=== PATIENT | female | born 1950 | race Caucasian/White ===

== ENCOUNTER 2016-11-17 11:45 | Inpatient (IN) | payer MEDICAID ==
[2016-11-17] VITALS (8 sets, daily range): BP systolic 89–139; BP diastolic 52–79
[~2016-11-17] VITALS: Ht 152.4 cm; Wt 95.7 kg
[~2016-11-17 11:45] MED LIST: SUCCINYLCHOLINE CHLORIDE 200 MG/10 ML VIAL MC ONE
[2016-11-17] MEDS ORDERED: IPRATROPIUM BROMIDE 0.5 MG/2.5 ML NEBU NEB ONE (12:00)
[2016-11-17] MEDS ORDERED: methylPREDNISolone SOD SUCC 125 MG/2 ML VIAL IV ONE (12:00)
[2016-11-17] MEDS ORDERED: IV NORMAL SALINE 1000 ML BAG IV ONE (12:00)
[2016-11-17] MEDS ORDERED: ALBUTEROL SULFATE 2.5 MG/3 ML NEBU NEB ONE (12:00)
[2016-11-17] MEDS ORDERED: IPRATROPIUM BROMIDE 0.5 MG/2.5 ML NEBU ONE (12:10)
[2016-11-17] MEDS ORDERED: ALBUTEROL SULFATE 2.5 MG/3 ML NEBU ONE (12:10)
--- NOTE | 2016-11-17 12:20 | NUR ---
Pt BIB [facility], reports pt having increasing SOB x 1 week, hx COPD, Wheezes, rales, and ronchi present bilaterally, SPO2 in low 90's; IV 20g right hand. Pt experiencing dyspnea, keeps pulling the O2 mask away from here face, being somewhat combative, appearing very anxious, speaks in 1-3 words at a time. Pt placed on monitor, EKG -- given to .
[2016-11-17 12:23] LABS: HEMATOCRIT 46.3 % (31.2-41.9); HEMOGLOBIN 15.4 g/dL (10.9-14.3); MEAN CORPUSCULAR HEMOGLOBIN 33.3 uug (24.7-32.8); MEAN CORPUSCULAR HGB CONC 33 g/dL (32.3-35.6); MEAN CORPUSCULAR VOLUME 100.3 fL (75.5-95.3); RED BLOOD CELL COUNT(AUTO) 4.62 MIL/uL (3.63-4.92)
[2016-11-17 12:24] LABS: BASOPHILS # (AUTO) 0.1 K/uL (0.0-8.0); BASOPHILS % (AUTO) 0.5 % (0.0-2.0); EOSINOPHILS # (AUTO) 0.1 K/uL (0.0-0.7); EOSINOPHILS % (AUTO) 0.5 % (0.0-7.0); LYMPHOCYTES # (AUTO) 1.7 K/uL (20.0-40.0); LYMPHOCYTES % (AUTO) 14.4 % (20.5-51.5); MONOCYTES # (AUTO) 0.7 K/uL (2.0-10.0); MONOCYTES % (AUTO) 5.9 % (0.0-11.0); NEUTROPHILS # (AUTO) 9.4 K/uL (1.8-8.9); NEUTROPHILS % (AUTO) 78.7 % (38.5-71.5); PLATELET COUNT (AUTO) 278 K/uL (179-408)
[2016-11-17] MEDS ORDERED: methylPREDNISolone SOD SUCC 125 MG/2 ML VIAL ONE (12:25)
[2016-11-17] MEDS ORDERED: NITROGLYCERIN OINT 1 GM PACKET TP ONE ×2 (12:30→12:37)
[2016-11-17] MEDS ORDERED: FUROSEMIDE 20 MG/2 ML VIAL IV ONE (12:30)
--- NOTE | 2016-11-17 12:30 | NUR ---
PT WAS BROUGHT IN TO ER WITH SOB AND RESPIRATORY DISTRESS ON NRB. PT TX WAS GIVEN DUE TO SOB. PT AT THIS TIME DEVELOPED MORE DISTRESS AND WAS INTUBATED BY MR BRINDA DUE TO RESPIRATORY DISTRESS.NO ABG WAS ORDER FOR PT BASE LINE STATUS. PT WAS INTUBATED AND PLACE ON VENT WITH SETTINGS OF AC 14 VT 600 FIO2 100% WITH ET-TUBE 7.5 AT 22CM LIP LINE. PT WAS SUCTION VIA TUBE AND MOUTH. PT HME WAS PLACE CUFF WAS CHECKED WITH CAKE FORMER. PT VENT ALARM ON AND AUDIBLE. PT AMBU BAG AT BED SIDE. PT SEDATED AT THIS TIME TOLERATING VENT WELL. NO POST ABG WAS ORDER PER MD. WILL CONTINUE TO MONITOR PT.
--- NOTE | 2016-11-17 12:35 | NUR ---
MD intubated pt, 7.5 ETT, 22 at teeth, verified placement w/CO2 detector and auscultation bilaterally, none in epigastric area.
--- NOTE | 2016-11-17 12:35 | NUR ---
Succinylcholine 100mg remaining in vial was wasted per protocol, witnessed by Scar Bhat LVN.
[2016-11-17] MEDS ORDERED: MIDAZOLAM HCL 2 MG/2 ML VIAL ONE (12:36)
[2016-11-17] MEDS ORDERED: FUROSEMIDE 40 MG/4 ML VIAL ONE (12:37)
[2016-11-17 12:38] LABS: CREATININE 1.5 mg/dL (0.6-1.3); POTASSIUM 4.1 mmol/L (3.5-5.1)
[2016-11-17] MEDS ORDERED: MIDAZOLAM HCL 2 MG/2 ML VIAL IV ONE (12:45)
[2016-11-17] MEDS ORDERED: SUCCINYLCHOLINE CHLORIDE 200 MG/10 ML VIAL IV ONE (12:45)
[2016-11-17 12:49] LABS: BILIRUBIN,DIRECT 0.2 mg/dL (0.0-0.2); BILIRUBIN,TOTAL 0.8 mg/dL (0.2-1.0); TOTAL PROTEIN, SERUM 7.1 g/dL (6.4-8.2)
[2016-11-17] MEDS ORDERED: POTA10TA10 PO (12:58)
[2016-11-17] MEDS ORDERED: BUME2TAB3 PO (12:58)
[2016-11-17 12:59] LABS: BAND % (MANUAL) 3 % (0-10); EOSINOPHILS % (MANUAL) 1 % (0-8); LYMPHOCYTES % (MANUAL) 14 % (20-40); METAMYELOCYTES % 1 % (0-1); MONOCYTES % (MANUAL) 5 % (2-10); NEUTROPHILS % (MANUAL) 76 % (42-75)
[2016-11-17] MEDS ORDERED: PROPOFOL 100 ML ONE ×2 (12:59→17:49)
[2016-11-17] MEDS ORDERED: PIPERACILLIN SODIUM/TAZOBACTAM 3.375 G in IV DEXTROSE 5% 50 ML IV ONE (13:00)
[2016-11-17] MEDS ORDERED: VANCOMYCIN IV 1,000 MG in IV DEXTROSE 5% 250 ML IV ONE (13:00)
[2016-11-17] MEDS ORDERED: VANCOMYCIN IV 0 ML ONE (13:26)
[2016-11-17] MEDS ORDERED: PIPERACILLIN SODIUM/TAZO 3.375 GM VIAL ONE (13:26)
--- NOTE | 2016-11-17 13:35 | NUR ---
Pt was using hands to try and pull out tubes. Upped propofol to 30mcg/kg/min @100 kg. Per MD, both pt wrists placed in soft restraints.
[2016-11-17] MEDS: PROPOFOL 100 ML IV PRN ×2 (13:36→22:04)
[2016-11-17] MEDS ORDERED: PIPERACILLIN/TAZOBACTAM/D5W 50 ML IV ONE (13:42)
[2016-11-17] MEDS ORDERED: VANCOMYCIN IV 200 ML ONE (13:43)
[2016-11-17 14:31] LABS: *BILIRUBIN,URIN NEGATIVE (NEGATIVE); *BLOOD, URINE 1+ (NEGATIVE); *CLARITY,URINE SLIGHTLY CLOUDY (CLEAR); *COLOR,URINE YELLOW (YELLOW); *KETONES,URINE NEGATIVE (NEGATIVE); *PROTEIN,URINE 2+ (NEGATIVE); *UROBILINOGEN,URINE 0.2 E.U./dl (NORMAL); LEUKOCYTE ESTERASE ,URINE NEGATIVE (NEGATIVE); NITRITE, URINE POSITIVE (NEGATIVE); PH,URINE 5.5 (5.0-8.0); UGLUCOSE NEGATIVE (NEGATIVE)
[2016-11-17 14:40] LABS: BACTERIA,URINE MANY /HPF (NONE SEEN); SQUAMOUS EPITHELIAL CELL,UR FEW /HPF (NONE SEEN)
[2016-11-17 14:41] LABS: MUCUS,URINE MANY /LPF (0-FEW)
--- NOTE | 2016-11-17 14:52 | NUR ---
PT VENT CHECK WAS DONE AT THIS TIME PT WAS SUCTION. PT REMAINS SEDATED TOLERATING VENT WELL. PT REMAINS ON SAME VENT SETTINGS AT THIS TIME NO ABG WAS ORDER AT THIS TIME PER MD.
[2016-11-17] MEDS ORDERED: ACETAMINOPHEN 650 MG/20 ML UDC- FOR SA ONLY NG PRN (18:30)
[2016-11-17] MEDS ORDERED: NOREPINEPHRINE BITARTRATE 16 MG in IV DEXTROSE 5% 500 ML IV PRN (18:30)
[2016-11-17] MEDS ORDERED: BISACODYL 10 MG SUPP.RECT RC PRN (18:30)
--- NOTE | 2016-11-17 18:30 | NUR ---
RECEIVED PT IN NAD; PT SEDATED ON PROPOFOL GTT; INTUBATED ON VENTILATOR SUPPORT; SR ON THE DETACKER. JUNE CATH IS PATENT AND DRAINING CLEAR YELLOW URINE. PT HAS RED/PURPLE DISCOLORATION IN THE RT ANKLE; AND BLANCHABLE REDNESS IN THE SACRUM/BUTTOCK AREA. 2 PATENT IV'S IN THE RT AC AND LT FA 20G. DAUGHTER AT BEDSIDE AND ALL PATIENT BELONGINGS SENT HOME WITH HER. VSS; SKIN INTACT
--- NOTE | 2016-11-17 18:30 | NUR ---
Transported pt to ICU bed 3, gave report to Jeremiah RN, bedside.
--- NOTE | 2016-11-17 19:54 | NUR ---
CLINICAL PHARMACY NOTE:VANCOMYCIN DOSING Request for vancomycin dosing on 66 y/o female 5' 200lbs for pneumonia Temp 98.2 BUN 35 Scr. 1.5 WBC 12 also on Zosyn received 1gm vancomycin in Er Continue vancomycin 1250mg q30h estimate trough 16. Will order trough level prior to 4th dose. Will continue to monitor'
--- NOTE | 2016-11-17 20:00 | NUR ---
informed respiratory therapist hugo called abg to doctor peleg and with orders to titrate fio2 to 50%.abg in am at 0800.
--- NOTE | 2016-11-17 20:00 | NUR ---
ORALLY INTUBATED TOLERATING VENT SETTINGS .CALLED DOCTOR MARRERO AND INFORMED ABOUT PULMONARY CONSULT ,REPORTED ABG AND CHEST X RAY RESULTS,WITH NEW ORDERS RECEIVED. PT ON PROPOFOL FOR SEDATION SAS OF 3.NO SIGNS AND SYMPTOMS OF RESPIRATORY DISTRESS TOLERATING VENT SETTINGS.ORAL CARE DONE AND SUCTION PATIENT VIA MOUTH AND VIA ETT . Addendum: 11/18/16 at 0045 by WALTRE VAUGHN RN Amended: Links added.
[2016-11-17 20:40] LABS: ABG BASE EXCESS 0.6 mmol/L; ABG HCO3 25.4 mmol/L; ABG PCO2 41.7 mmHg (35.0-45.0); ABG PH 7.403 (7.350-7.450); ABG SITE LEFT BRACHIAL; ABG TOTAL HEMOGLOBIN 13.6 G/dL (12.0-16.0); COHb 0.6 % (0.5-1.5); MetHb 0.3 % (0.0-1.5); O2Hb 98.8 % (94.0-97.0); VENT MODE VENT - A/C; VT, ABG 600 mL
[2016-11-17] MEDS ORDERED: FIBERSOURCE HN 1000ML LIQUID GT PRN (21:00)
--- NOTE | 2016-11-17 21:00 | NUR ---
unable to complete admission data ,due to patients condition and no family at bedside .
[2016-11-17] MEDS: FAMOTIDINE. 20 MG/2 ML VIAL IV SCH (21:02)
[2016-11-17] MEDS: FUROSEMIDE 40 MG/4 ML VIAL IV SCH (21:02)
[2016-11-17] MEDS: ENOXAPARIN SODIUM 40 MG/0.4 ML DISP.SYRIN SQ SCH (21:03)
[2016-11-17] MEDS: PIPERACILLIN/TAZOBACTAM/D5W 2.25 G in PREMIXED 1 EACH IV SCH (21:03)
--- NOTE | 2016-11-17 22:00 | NUR ---
turned and reposition patient .elevated upper and lower extremities with pillows .scds used to bilateral lower extremities . Addendum: 11/18/16 at 0104 by WALTER VAUGHN RN Amended: Links added.
--- NOTE | 2016-11-17 22:20 | NUR ---
Pt rec'd on Garcia settings AC 14, VT 600 and FIO2-100%. FIO2 lowered to 80% per ABG results. No resp. distress noted at this time. 7.5 ETT is at approx. 22 cm at the lip. No resp. distress noted at this time. Pt to be monitored throughout the shift and PRN SX. Garcia alarm parameters have been checked and remain audible.
[2016-11-18] VITALS (40 sets, daily range): BP systolic 84–147; BP diastolic 47–86
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
[2016-11-18] MEDS: PIPERACILLIN/TAZOBACTAM/D5W 2.25 G in PREMIXED 1 EACH IV SCH ×4 (02:47→20:27)
[2016-11-18] MEDS: PROPOFOL 100 ML IV PRN (02:47)
[2016-11-18] MEDS ORDERED: Z GUARD REMEDY PASTE 57 GM TUBE TOP PRN (05:30)
[2016-11-18 05:54] LABS: BASOPHILS % (AUTO) 0.1 % (0.0-2.0); HEMATOCRIT 40.8 % (37-47); HEMOGLOBIN 13.4 G/DL (12.0-16.0); LYMPHOCYTES # (AUTO) 0.6 K/UL (0.8-4.8); LYMPHOCYTES % (AUTO) 5.5 % (20.5-51.5); MEAN CORPUSCULAR HEMOGLOBIN 32.5 UUG (27.0-31.0); MEAN CORPUSCULAR HGB CONC 33 g/dL (32.0-37.0); MEAN CORPUSCULAR VOLUME 98.5 FL (81.0-99.0); MONOCYTES # (AUTO) 0.4 K/UL (0.1-1.30); MONOCYTES % (AUTO) 3.3 % (0.0-11.0); NEUTROPHILS # (AUTO) 10.2 K/UL (1.8-8.9); NEUTROPHILS % (AUTO) 91.1 % (38.5-71.5); PLATELET COUNT (AUTO) 242 K/UL (150-450); RED BLOOD CELL COUNT(AUTO) 4.14 MIL/UL (4.2-5.4); WHITE BLOOD COUNT (AUTO) 11.2 K/UL (4.0-11.2)
--- NOTE | 2016-11-18 06:11 | NUR ---
Pt remains on Garcia on settings of AC 14, VT 600 and FIO2 now on 50%. 7.5 ETT remains patent and secure at approx. 22 cm at the lip. No resp. distress noted throughout the shift. Pt was routinely sx'd and appeared to tolerate the ventilator settings well. BVM at bedside. Garcia alarm parameters have been checked and remain audible.
[2016-11-18 06:12] LABS: BILIRUBIN,TOTAL 0.7 mg/dL (0.2-1.0); CREATININE 1.6 mg/dL (0.6-1.3); MAGNESIUM 2.1 mg/dL (1.8-2.4); PHOSPHOROUS 4.5 mg/dL (2.5-4.9); POTASSIUM 4.1 mmol/L (3.5-5.1); TOTAL PROTEIN, SERUM 5.9 g/dL (6.4-8.2)
[2016-11-18 06:15] LABS: THYROID STIMULATING HORMONE 0.359 mIU/mL (0.358-3.740)
[2016-11-18] MEDS ORDERED: FIBERSOURCE HN 1000ML LIQUID GT PRN (07:05)
--- NOTE | 2016-11-18 07:27 | NUR ---
uneventful night remains orally intubated tolerating vent settings .v/s wnl.endorsed to day RN using sbar.please see ccu flow sheet for trends and clinical data .
--- NOTE | 2016-11-18 08:00 | NUR ---
Pt received in bed intubated on propofol drip 30 mcg/kg/min start sedation vacation and pt remains on Restraint, titrate to 20 mcg/kg/min and the 0820 10 mcg/kg/min Pt has a ABG on Ventilator AC 14 VT 600/ Fio2 50% No peep. Pt full awake extubate herself loosing restraints HOB elevated Pt fiollow coomands and sat on NRBM 98% call Dr Vance to notify and spoke with Dr Mata who is coming to see Pt. 0855 Dr vance call back and order ABG in 30 min at 0930 RT notify 0900 Pt remains full aware follow commands wean oxygen therapy to NC $ LTs sat remains 100% Pt comfortable denies any pain no SOB
[2016-11-18 08:27] LABS: ABG BASE EXCESS 3.1 mmol/L; ABG HCO3 28.4 mmol/L; ABG PCO2 46.3 mmHg (35.0-45.0); ABG PH 7.406 (7.350-7.450); ABG PO2 111.1 mmHg (75.0-100.0); ABG SITE RIGHT RADIAL; ABG TOTAL HEMOGLOBIN 13.6 G/dL (12.0-16.0); COHb 0.6 % (0.5-1.5); MetHb 0.1 % (0.0-1.5); O2Hb 97.7 % (94.0-97.0); VENT MODE VENT - A/C; VT, ABG 600 mL
--- NOTE | 2016-11-18 08:40 | NUR ---
PT SELF EXTUBATED. HHN TX GIVEN AND TOLERATED WELL. CURRENTLY ON 4 LPM VIA NASAL CANNULA, DOING FAIRLY WELL. WILL CONTINUE TO MONITOR FOR S/S OF RESPIRATORY DISTRESS.
[2016-11-18] MEDS ORDERED: ALBUTEROL SULFATE 2.5 MG/3 ML NEBU NEB PRN (09:00)
[2016-11-18] MEDS: Z GUARD REMEDY PASTE 57 GM TUBE TOP SCH ×2 (09:16→20:42)
[2016-11-18] MEDS: FAMOTIDINE. 20 MG/2 ML VIAL IV SCH ×2 (09:20→20:41)
[2016-11-18] MEDS: FUROSEMIDE 40 MG/4 ML VIAL IV SCH ×2 (09:21→20:41)
[2016-11-18 09:38] LABS: ABG BASE EXCESS 3.2 mmol/L; ABG HCO3 29.1 mmol/L; ABG PCO2 48.9 mmHg (35.0-45.0); ABG PH 7.392 (7.350-7.450); ABG PO2 69.8 mmHg (75.0-100.0); ABG SITE RIGHT RADIAL; ABG TOTAL HEMOGLOBIN 14.1 G/dL (12.0-16.0); COHb 0.7 % (0.5-1.5); MetHb 0.2 % (0.0-1.5); O2Hb 93.7 % (94.0-97.0); VENT MODE Nasal Cannula
[2016-11-18] MEDS: ASPIRIN 81 MG TAB.CHEW GT SCH (10:05)
[2016-11-18] MEDS: VANCOMYCIN IV 1,250 MG in IV DEXTROSE 5% 500 ML IV SCH (12:11)
[2016-11-18] MEDS ORDERED: IPRATROPIUM BROMIDE 0.5 MG/2.5 ML NEBU NEB SCH (12:30)
[2016-11-18] MEDS ORDERED: ALBUTEROL SULFATE 2.5 MG/3 ML NEBU NEB SCH (12:30)
[2016-11-18] MEDS: ALBUTEROL SULFATE 2.5 MG/3 ML NEBU NEB SCH ×2 (13:56→19:10)
[2016-11-18] MEDS: IPRATROPIUM BROMIDE 0.5 MG/2.5 ML NEBU NEB SCH ×2 (13:57→19:10)
[2016-11-18] MEDS: methylPREDNISolone SOD SUCC 125 MG/2 ML VIAL IV SCH ×2 (14:18→22:08)
--- NOTE | 2016-11-18 16:01 | NUR ---
PHARMACY CLINICAL NOTES(VANCOMYCIN DOSING) S: 66 YO female on Vancomycin and Zosyn for PNA. O: BUN/SCR 33/1.6, WBC 11.2, TEMP 98.5 A/P: PT started on Vancomycin 1250 mg q30 hr. She received first dose today @ 1200; will continue with the same regimen and will order a trough level prior to 4th dose. Will continue to monitor and adjust the dose if necessary
--- NOTE | 2016-11-18 19:30 | NUR ---
Awake, alert, S/P self extubation this AM. Hx: COPD. Nasal cannula in use, titrating O2 to keep sat =>92%. SOB with exertion. Audible wheezes, RT at bedside for neb Tx. Chronic smoker, verbalizes no plans to quit despite smoking cessation education. Bouts of non-productive cough; voice hoarse. Found IV site right arm infiltrated and appropriate interventions done.
[2016-11-18] MEDS: MORPHINE SULFATE 2 MG/1 ML DISP.SYRIN IV PRN (20:29)
[2016-11-18] MEDS: ENOXAPARIN SODIUM 40 MG/0.4 ML DISP.SYRIN SQ SCH (20:42)
--- NOTE | 2016-11-18 22:00 | NUR ---
Asking for burger; PO swallowing trial with few ice chips. Noted some discomfort and difficulty. Tends to cough. Explained will keep NPO tonight and continue tube feeding Fibersource until seen by MD in AM. Aspiration precautions observed at all times. HOB up 30 degrees.
[2016-11-19] VITALS (7 sets, daily range): BP systolic 119–138; BP diastolic 69–86
[2016-11-19] MEDS: ALBUTEROL SULFATE 2.5 MG/3 ML NEBU NEB SCH ×4 (01:01→19:39)
[2016-11-19] MEDS: IPRATROPIUM BROMIDE 0.5 MG/2.5 ML NEBU NEB SCH ×4 (01:01→19:39)
[2016-11-19] MEDS: PIPERACILLIN/TAZOBACTAM/D5W 2.25 G in PREMIXED 1 EACH IV SCH ×2 (01:57→08:36)
[2016-11-19] MEDS: MORPHINE SULFATE 2 MG/1 ML DISP.SYRIN IV PRN (01:58)
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
[2016-11-19] MEDS: methylPREDNISolone SOD SUCC 125 MG/2 ML VIAL IV SCH ×3 (05:48→21:00)
[2016-11-19 07:37] LABS: HEMATOCRIT 41.2 % (37-47); HEMOGLOBIN 13.8 G/DL (12.0-16.0); LYMPHOCYTES # (AUTO) 0.4 K/UL (0.8-4.8); LYMPHOCYTES % (AUTO) 2.8 % (20.5-51.5); MEAN CORPUSCULAR HEMOGLOBIN 32.8 UUG (27.0-31.0); MEAN CORPUSCULAR HGB CONC 34 g/dL (32.0-37.0); MEAN CORPUSCULAR VOLUME 97.6 FL (81.0-99.0); MONOCYTES # (AUTO) 0.4 K/UL (0.1-1.30); NEUTROPHILS # (AUTO) 13.1 K/UL (1.8-8.9); NEUTROPHILS % (AUTO) 94.2 % (38.5-71.5); PLATELET COUNT (AUTO) 283 K/UL (150-450); RED BLOOD CELL COUNT(AUTO) 4.22 MIL/UL (4.2-5.4); WHITE BLOOD COUNT (AUTO) 13.9 K/UL (4.0-11.2)
[2016-11-19] MEDS: FAMOTIDINE. 20 MG/2 ML VIAL IV SCH (08:36)
[2016-11-19] MEDS: FUROSEMIDE 40 MG/4 ML VIAL IV SCH ×2 (08:36→21:01)
[2016-11-19] MEDS: ASPIRIN 81 MG TAB.CHEW GT SCH (08:36)
[2016-11-19] MEDS: Z GUARD REMEDY PASTE 57 GM TUBE TOP SCH ×2 (08:38→21:02)
--- NOTE | 2016-11-19 10:30 | NUR ---
TRANSFERRED FROM CCU AWAKE ALERT AND RESPOND APPROPRIATELY WITH SIMPLE QUESTIONS. O2 AT 2-3L NC SATURATING 94% WITH NGT FIBERSOURCE AT 30 ML/HR TOLERATING WELL
[2016-11-19 10:35] LABS: BILIRUBIN,TOTAL 0.7 mg/dL (0.1-1.0); CREATININE 1.5 mg/dL (0.6-1.3); POTASSIUM 3.8 mmol/L (3.5-5.1)
[2016-11-19 10:36] LABS: MAGNESIUM 2.3 mg/dL (1.8-2.4); TOTAL PROTEIN, SERUM 6.4 g/dL (6.4-8.2)
--- NOTE | 2016-11-19 12:25 | NUR ---
Clinical pharmacy note: Vancomycin pharmacy to dose Subjective: to continue vanco in this 66 yo female for PNA. Objective: height 60'' weight 217 lb BUN 30 Scr 1.5 Wbc 13.9 temp 97.9 Assessment/Plan Will continue same dose of vancomycin 1250mg IVPB q3hr for today. Second dose is due today at 1800. Plan to draw vanco trough level before 4th mcgraw (level not yet ordered). Will monitor renal function & adjust the dose if needed. Will continue to monitor. Addendum: 11/19/16 at 1233 by ELLA SHI ADM CORRECTION - FREQ [id number]
[2016-11-19 12:59] LABS: BAND % (MANUAL) 1 % (0-10); LYMPHOCYTES % (MANUAL) 2 % (20-40); MONOCYTES % (MANUAL) 1 % (2-10); NEUTROPHILS % (MANUAL) 95 % (42-75); PROMYELOCYTES % 1 %
[2016-11-19] MEDS: PIPERACILLIN/TAZOBACTAM/D5W 3.375 G in PREMIXED 1 EACH IV SCH ×2 (14:18→21:01)
[2016-11-19] MEDS: VANCOMYCIN IV 1,250 MG in IV DEXTROSE 5% 500 ML IV SCH (17:11)
--- NOTE | 2016-11-19 17:19 | NUR ---
NO ACUTE CHANGE TOLERATING FEEDING NO LOOSE STOOL. SR ON MONITOR, NO REACTION FROM IV ANTIBIOTICS
[2016-11-19] MEDS: ACIDOPHILUS/BULGARICUS CHEW TAB GT SCH (21:00)
[2016-11-19] MEDS: ENOXAPARIN SODIUM 40 MG/0.4 ML DISP.SYRIN SQ SCH (21:04)
--- NOTE | 2016-11-19 21:47 | NUR ---
RECEIVED PATIENT AWAKE, ALERT AND ORIENTED X4. NC 2L O2 SATS AT 100% WITH NON PRODUCTIVE COUGH, NEB TX GIVEN BY RT. DOCTOR CHRISTINE CHECKED PATIENT AT BEDSIDE AND ORDERED TO STOP THE FEEDING AND REMOVE THE G TUBE. ORDERED ST CONSULT. MAINTAINED ON NPO.INFORMED HIM ALSO THAT PATIENT'S DAUGHTER WANTS UPDATE HE WILL CALL IN THE MORNING. OTHERWISE PATIENT IS COMFORTABLE, VITAL SIGNS ARE STABLE. JUNE IN PLACED DRAINING PAM COLORED URINE. CALL LIGHT WITHIN REACH.
[2016-11-20] VITALS: BP 110/69
[2016-11-20] MEDS: ALBUTEROL SULFATE 2.5 MG/3 ML NEBU NEB SCH ×4 (01:53→19:40)
[2016-11-20] MEDS: IPRATROPIUM BROMIDE 0.5 MG/2.5 ML NEBU NEB SCH ×4 (01:53→19:40)
[2016-11-20 04:00] VITALS: BP 103/75
[2016-11-20] MEDS: PIPERACILLIN/TAZOBACTAM/D5W 3.375 G in PREMIXED 1 EACH IV SCH ×3 (05:37→21:55)
[2016-11-20] MEDS: methylPREDNISolone SOD SUCC 125 MG/2 ML VIAL IV SCH ×2 (05:37→20:46)
--- NOTE | 2016-11-20 06:33 | NUR ---
patient slept good through the night. vss. no other complaint or distress. call light within reach.
[2016-11-20 06:48] LABS: BASOPHILS % (AUTO) 0.1 % (0.0-2.0); HEMATOCRIT 43.5 % (37-47); HEMOGLOBIN 14.8 G/DL (12.0-16.0); LYMPHOCYTES # (AUTO) 0.5 K/UL (0.8-4.8); LYMPHOCYTES % (AUTO) 4.4 % (20.5-51.5); MEAN CORPUSCULAR HEMOGLOBIN 32.9 UUG (27.0-31.0); MEAN CORPUSCULAR HGB CONC 34 g/dL (32.0-37.0); MEAN CORPUSCULAR VOLUME 96.8 FL (81.0-99.0); MONOCYTES # (AUTO) 0.5 K/UL (0.1-1.30); NEUTROPHILS # (AUTO) 9.7 K/UL (1.8-8.9); NEUTROPHILS % (AUTO) 90.5 % (38.5-71.5); PLATELET COUNT (AUTO) 285 K/UL (150-450); RED BLOOD CELL COUNT(AUTO) 4.49 MIL/UL (4.2-5.4); WHITE BLOOD COUNT (AUTO) 10.7 K/UL (4.0-11.2)
[2016-11-20 06:59] LABS: CREATININE 1.4 mg/dL (0.6-1.3); MAGNESIUM 2.3 mg/dL (1.8-2.4); PHOSPHOROUS 3.3 mg/dL (2.5-4.9); POTASSIUM 3.5 mmol/L (3.5-5.1)
[2016-11-20] MEDS ORDERED: POTASSIUM CHLORIDE 20 MEQ POWDER PACKET PO ONE (07:15)
--- NOTE | 2016-11-20 08:00 | NUR ---
RECEIVED PATIENT AWAKE ALERT AND ORIENTED DENIES PAIN OR DISCOMFORTS AT THIS TIME DUE MEDICATIONS GIVEN AND TOLERATED WELL.REMAIN ON O2 ORDERED WITH SOME SOBE OCCASSIONAL COUGH EPISODES NOTED. MADE COMFORTABLE AT THIS TIME.
[2016-11-20] MEDS: FAMOTIDINE. 20 MG/2 ML VIAL IV SCH (08:26)
[2016-11-20] MEDS: ACIDOPHILUS/BULGARICUS CHEW TAB GT SCH ×2 (08:27→20:45)
[2016-11-20] MEDS: ASPIRIN 81 MG TAB.CHEW GT SCH (08:27)
[2016-11-20] MEDS: Z GUARD REMEDY PASTE 57 GM TUBE TOP SCH ×2 (08:28→21:55)
[2016-11-20] MEDS: LISINOPRIL 5 MG TABLET PO SCH (08:32)
[2016-11-20] MEDS: FUROSEMIDE 20 MG/2 ML VIAL IVP SCH ×2 (08:32→20:46)
[2016-11-20] MEDS ORDERED: FUROSEMIDE 40 MG/4 ML VIAL IV SCH (09:00)
[2016-11-20] MEDS: BISOPROLOL FUMARATE 5 MG TABLET PO SCH (11:37)
[2016-11-20 11:38] VITALS: BP 130/75
--- NOTE | 2016-11-20 11:51 | NUR ---
PATIENT SEEN AND EXAMINED BY DR BYRD WITH NEW ORDERS AND NOTED.
[2016-11-20] MEDS: DOCUSATE SODIUM 100 MG CAPSULE PO SCH ×2 (12:30→20:45)
[2016-11-20] MEDS ORDERED: IPRATROPIUM BROMIDE 0.5 MG/2.5 ML NEBU NEB PRN (12:45)
[2016-11-20] MEDS ORDERED: ALBUTEROL SULFATE 2.5 MG/3 ML NEBU NEB PRN (12:45)
--- NOTE | 2016-11-20 12:57 | NUR ---
PATIENT ASSISTED TO THE TOILET AND SHE HAD A BOWEL MOVEMENT SO SHE REFUSED THE DSS ORDERED STATED THAT SHE DOES NOT NEED IT AT THE MOMENT.
--- NOTE | 2016-11-20 14:37 | NUR ---
Clinical pharmacy note: Vancomycin pharmacy to dose Subjective: to continue vanco in this 66 yo female for PNA. Objective: height 60'' weight 217 lb BUN 32 Scr 1.4 Wbc 10.7 temp 99.5 Assessment/Plan Will order trough level prior to next dose. Will adjust dose if needed.
[2016-11-20 15:42] VITALS: BP 119/70
--- NOTE | 2016-11-20 17:44 | NUR ---
AWAKE ALERT ORIENTED BUT FORGETFUL ABLE TO VERBALISE NEEDS MAXIMUM ASSIST FOR ALL ADL.REMAIN ON O2 ORDERED AND HAND HELD NEBULIZER AND HELPFUL.BEDSIDE COMMODE PLACED IN HER ROOM ITS DIFFICULT FOR PATIENT TO WALK TO AND FROM THE BATHROOM EVEN WITH ASSIST AND FRONT WHEEL WALKER.MADE COMFORTABLE.
--- NOTE | 2016-11-20 20:00 | NUR ---
RECEIVED PATIENT IN BED ALERT ORIENTED, NO SOB NO CHEST PAIN NOTED, JUNE CATH PATENT DRAINING WITH YELLOW COLOR URINE IN MODERATE AMOUNT, DENIES PAIN AT THIS TIME. RHYTHM IS SINUS RHYTHM CONT TO MONITOR.
[2016-11-20 20:37] VITALS: BP 113/77
[2016-11-20] MEDS: ATORVASTATIN 40 MG TABLET PO SCH (20:45)
[2016-11-20] MEDS: ENOXAPARIN SODIUM 40 MG/0.4 ML DISP.SYRIN SQ SCH (21:05)
[2016-11-21] MEDS: VANCOMYCIN IV 1,250 MG in IV DEXTROSE 5% 500 ML IV SCH (00:10)
[2016-11-21 00:26] VITALS: BP 97/61
--- NOTE | 2016-11-21 01:00 | NUR ---
CHILD CAREGIVER [employer]IVATE HOME MADE ROUNDS AND PATIENT HAD BOWEL MOVEMENTS, CHILD CAREGIVER [employer] ASSISTED PATIENT TO THE COMMODE, HAD MEDIUM AMOUNT BM, RENDERED [facility] [place] C[facility], ASSISTED BACK TO BED, CALL LIGHT WITHIN REACH.
[2016-11-21] MEDS: IPRATROPIUM BROMIDE 0.5 MG/2.5 ML NEBU NEB SCH ×4 (01:16→19:14)
[2016-11-21] MEDS: ALBUTEROL SULFATE 2.5 MG/3 ML NEBU NEB SCH ×4 (01:16→19:14)
--- NOTE | 2016-11-21 01:50 | NUR ---
A LOUD THUMP WAS HEARED COMING FROM PATIENT ROOM, UPON ENTERING ROOM, FOUND PATIENT LYING ON THE FLOOR ON HER RIGHT SIDE; WHEN ASKED PATIENT ANSWERED "I HAD A BOWEL MOVEMENT AND WANTING TO USE THE COMMODE BUT I SLIPPED." ASSESSED PATIENT FOR ANY APPARENT INJURY; VITAL SIGNS TAKEN AND RECORDED, ROM OF ALL EXTREMITIES CHECKED; NO LIMITATIONS NOTED. CHECKED BODY FOR ANY BUMPS OR ALTERATIONS. NONE NOTED. NOTIFIED FACILITY MAINTENANCE SUPERVISOR ELISA ZAMORA AND NO NEW ORDERS GIVEN. NSG TRANSITIONS RN CARE COORDINATOR & CHARGE NURSE AWARE OF ABOVE. REINFORCED USING CALL LIGHTS AND PUTTING BED ALARMS ON AT ALL TIMES. ASSISTED PATIENT BACK TO BED; CLEANED AND KEPT DRY, IV INFUSING WELL; NO COMPLAINTS OF PAIN PRESENTED. RESTING QUIETLY IN BED, WILL CONT TO MONITOR.
[2016-11-21 02:20] VITALS: BP 109/79
[2016-11-21 04:00] VITALS: BP 125/79
[2016-11-21] MEDS: PIPERACILLIN/TAZOBACTAM/D5W 3.375 G in PREMIXED 1 EACH IV SCH ×3 (05:56→21:45)
--- NOTE | 2016-11-21 07:00 | NUR ---
PATIENT ALERT ORIENTED, NO SOB NO CHEST PAIN, NO COMPLAIN OF PAIN, CALL LIGHT WITHIN REACH, PATIENT IN BED, SLEEPING ON AND OFF, ENDORSED TO NEXT SHIFT,
--- NOTE | 2016-11-21 08:26 | NUR ---
PLACE A CALL TO UVALDO DAUGHTER TO NOTIFY HER OF THE INCIDENT OF FALL, PERSONAL PHONE JUST KEEP ON RING AND RINGING, CALL UVALDO WORK NUMBER, BUT ANSWERING MACHINE HR RECEPTIONIST, LEFT MESSAGE TO CALL US REGARDING HER MOTHER. ENDORSED TO INCOMING RN.
--- NOTE | 2016-11-21 08:50 | NUR ---
DR CABRERA HERE TO SEE PATIENT WITH NO NEW ORDERS AT THIS TIME
[2016-11-21 09:01] LABS: BASOPHILS % (AUTO) 0.1 % (0.0-2.0); EOSINOPHILS % (AUTO) 0.1 % (0.0-7.0); HEMATOCRIT 42.2 % (31.2-41.9); HEMOGLOBIN 14.5 g/dL (10.9-14.3); LYMPHOCYTES # (AUTO) 0.4 K/uL (20.0-40.0); LYMPHOCYTES % (AUTO) 4.4 % (20.5-51.5); MEAN CORPUSCULAR HEMOGLOBIN 33.6 uug (24.7-32.8); MEAN CORPUSCULAR HGB CONC 34 g/dL (32.3-35.6); MEAN CORPUSCULAR VOLUME 97.8 fL (75.5-95.3); MONOCYTES # (AUTO) 0.5 K/uL (2.0-10.0); MONOCYTES % (AUTO) 5.1 % (0.0-11.0); NEUTROPHILS # (AUTO) 9.2 K/uL (1.8-8.9); NEUTROPHILS % (AUTO) 90.3 % (38.5-71.5); PLATELET COUNT (AUTO) 277 K/uL (179-408); RED BLOOD CELL COUNT(AUTO) 4.31 MIL/uL (3.63-4.92); WHITE BLOOD COUNT (AUTO) 10.2 K/uL (3.8-11.8)
[2016-11-21] MEDS: DOCUSATE SODIUM 100 MG CAPSULE PO SCH ×2 (09:13→21:38)
[2016-11-21] MEDS: ASPIRIN 81 MG TAB.CHEW GT SCH (09:13)
[2016-11-21] MEDS: FAMOTIDINE. 20 MG/2 ML VIAL IV SCH (09:13)
[2016-11-21] MEDS: methylPREDNISolone SOD SUCC 125 MG/2 ML VIAL IV SCH (09:13)
[2016-11-21] MEDS: ACIDOPHILUS/BULGARICUS CHEW TAB GT SCH ×2 (09:13→21:38)
[2016-11-21] MEDS: FUROSEMIDE 20 MG/2 ML VIAL IVP SCH (09:13)
[2016-11-21] MEDS: LISINOPRIL 5 MG TABLET PO SCH (09:14)
[2016-11-21] MEDS: BISOPROLOL FUMARATE 5 MG TABLET PO SCH (09:17)
[2016-11-21] MEDS: Z GUARD REMEDY PASTE 57 GM TUBE TOP SCH ×2 (09:18→21:38)
[2016-11-21 09:26] LABS: THYROID STIMULATING HORMONE 0.489 mIU/mL (0.358-3.740)
--- NOTE | 2016-11-21 09:30 | NUR ---
CALL RECEIVED FROM PATIENTS DAUGHTER UVALDO STATED SOMEONE HAD CALLED HER SHE WAS INFORMED THAT HER MOM HAD FALLEN DOWN EARLY THIS AM WHEN SHE GOT OUT OF BED UNATTENDED BUT NO INJURIES NOTED AT THIS TIME AND SHE EXPRESSED UNDERSTANDING.
[2016-11-21 10:05] LABS: CREATININE 1.5 mg/dL (0.6-1.3); MAGNESIUM 2.4 mg/dL (1.8-2.4); PHOSPHOROUS 3.7 mg/dL (2.5-4.9); POTASSIUM 3.9 mmol/L (3.5-5.1); TOTAL PROTEIN, SERUM 5.9 g/dL (6.4-8.2)
[2016-11-21 10:16] LABS: URIC ACID 6.9 mg/dL (2.6-6.0)
[2016-11-21 11:36] VITALS: BP 119/83
[2016-11-21 12:07] LABS: LYMPHOCYTES % (MANUAL) 6 % (20-40); MONOCYTES % (MANUAL) 3 % (2-10); NEUTROPHILS % (MANUAL) 91 % (42-75)
--- NOTE | 2016-11-21 12:13 | NUR ---
PATIENT SEEN AND EXAMINED BY THE LOOM STARTER DR ESTEVES WITH NEW ORDERS AND NOTED.
--- NOTE | 2016-11-21 14:34 | NUR ---
Clinical pharmacy note: Vancomycin pharmacy to dose Subjective: to continue vanco in this 66 yo female for PNA. Objective: height 60'' weight 217 lb (now 266 lb) BUN 39 Scr 1.5 Wbc 10.2 temp 98.4 Assessment/Plan Will continue same dose of vancomycin 1250mg IVPB q30h for today. Level of 11.5 is before 3rd dose (not 4th dose- not at steady state). Plan to order vancomycin trough level before next dose (ordered for 11/22 at 0530- RN has been informed to hold 0600 dose if trough level above 20 mcg/ml. Will continue to monitor renal function. Will continue to follow.
[2016-11-21 15:07] VITALS: BP 116/64
[2016-11-21] MEDS: FUROSEMIDE 20 MG TABLET PO SCH (16:16)
--- NOTE | 2016-11-21 18:00 | NUR ---
IV SITE INFILTERATED REINSERTED TO HER LEFT UPPER ARM WITH GAUGE 20.REMAIN ON IV ANTIBIOTICS WITH NO ADVERSE OR ALLERGIC REACTIONS AT THIS TIME.PATIENT SEEN BY DR KING WITH NO NEW ORDERS AT THIS TIME.
[2016-11-21 19:49] VITALS: BP 115/66
[2016-11-21] MEDS: ATORVASTATIN 40 MG TABLET PO SCH (21:38)
[2016-11-21] MEDS: methylPREDNISolone SOD SUCC 40 MG/ML VIAL IV SCH (21:38)
[2016-11-22 00:21] VITALS: BP 118/74
[2016-11-22] MEDS: ALBUTEROL SULFATE 2.5 MG/3 ML NEBU NEB SCH ×4 (00:40→19:47)
[2016-11-22] MEDS: IPRATROPIUM BROMIDE 0.5 MG/2.5 ML NEBU NEB SCH ×4 (00:40→19:47)
--- NOTE | 2016-11-22 02:43 | NUR ---
Patient had 2 seconds SVT on the monitor, checked patient in room. Patient asleep & arousable, denies any pain.
--- NOTE | 2016-11-22 03:43 | NUR ---
Repositioned in bed, patient upset. Noted 4 seconds SVT then back to NSR w/ PACs. Vital signs WNL. Will continue to monitor
[2016-11-22 04:00] VITALS: BP 121/79
[2016-11-22] MEDS: PIPERACILLIN/TAZOBACTAM/D5W 3.375 G in PREMIXED 1 EACH IV SCH (05:11)
--- NOTE | 2016-11-22 06:06 | NUR ---
Called lab for vanco trough result, still pending result.
[2016-11-22 06:25] LABS: EOSINOPHILS % (AUTO) 0.1 % (0.0-7.0); HEMATOCRIT 42.5 % (31.2-41.9); HEMOGLOBIN 14.4 g/dL (10.9-14.3); LYMPHOCYTES # (AUTO) 0.4 K/uL (20.0-40.0); LYMPHOCYTES % (AUTO) 3.8 % (20.5-51.5); MEAN CORPUSCULAR HEMOGLOBIN 33.1 uug (24.7-32.8); MEAN CORPUSCULAR HGB CONC 34 g/dL (32.3-35.6); MEAN CORPUSCULAR VOLUME 97.4 fL (75.5-95.3); MONOCYTES # (AUTO) 0.4 K/uL (2.0-10.0); MONOCYTES % (AUTO) 4.2 % (0.0-11.0); NEUTROPHILS # (AUTO) 9.2 K/uL (1.8-8.9); NEUTROPHILS % (AUTO) 91.9 % (38.5-71.5); PLATELET COUNT (AUTO) 254 K/uL (179-408); RED BLOOD CELL COUNT(AUTO) 4.37 MIL/uL (3.63-4.92)
[2016-11-22] MEDS: VANCOMYCIN IV 1,250 MG in IV DEXTROSE 5% 500 ML IV SCH (06:43)
--- NOTE | 2016-11-22 06:43 | NUR ---
Vancomycin trough level 10.1. Vancomycin 1250mg IVPB adm.
[2016-11-22 07:00] LABS: BILIRUBIN,TOTAL 0.9 mg/dL (0.2-1.0); CREATININE 1.3 mg/dL (0.6-1.3); MAGNESIUM 2.4 mg/dL (1.8-2.4); PHOSPHOROUS 3.5 mg/dL (2.5-4.9); POTASSIUM 3.4 mmol/L (3.5-5.1); TOTAL PROTEIN, SERUM 5.7 g/dL (6.4-8.2)
[2016-11-22] MEDS: DOCUSATE SODIUM 100 MG CAPSULE PO SCH (08:50)
[2016-11-22] MEDS: ASPIRIN 81 MG TAB.CHEW GT SCH (08:50)
[2016-11-22] MEDS: FAMOTIDINE 20 MG TABLET PO SCH (08:51)
[2016-11-22] MEDS: ACIDOPHILUS/BULGARICUS CHEW TAB GT SCH ×2 (08:51→19:44)
[2016-11-22] MEDS: methylPREDNISolone SOD SUCC 40 MG/ML VIAL IV SCH ×2 (08:51→19:44)
[2016-11-22] MEDS: FUROSEMIDE 20 MG TABLET PO SCH ×2 (08:51→16:49)
[2016-11-22] MEDS: BISOPROLOL FUMARATE 5 MG TABLET PO SCH (08:55)
[2016-11-22] MEDS: LISINOPRIL 5 MG TABLET PO SCH (08:56)
[2016-11-22] MEDS: Z GUARD REMEDY PASTE 57 GM TUBE TOP SCH ×2 (08:56→19:45)
[2016-11-22 09:42] LABS: BAND % (MANUAL) 1 % (0-10); LYMPHOCYTES % (MANUAL) 6 % (20-40); MONOCYTES % (MANUAL) 7 % (2-10); NEUTROPHILS % (MANUAL) 86 % (42-75)
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
[2016-11-22] MEDS ORDERED: POTASSIUM CHLORIDE 20 MEQ TAB.PRT.SR PO ONE (10:45)
[2016-11-22 11:49] VITALS: BP 108/69
[2016-11-22] MEDS: AZITHROMYCIN 250 MG TABLET PO SCH (12:05)
[2016-11-22] MEDS: CEPHALEXIN MONOHYDRATE 500 MG CAPSULE PO SCH ×3 (12:05→21:57)
--- NOTE | 2016-11-22 13:17 | NUR ---
AMY JUNE ORDERED BY . PT O2 TITRATION TO 3 LITERS ORDRED BY
[2016-11-22 16:03] VITALS: BP 111/70
--- NOTE | 2016-11-22 18:33 | NUR ---
pt stable throughout the day. pt o2 titration at 3 l satting at 95. pt seems confused. psych consult ordered by xin jamil. pt given ceflex and zithromax po. pt has non productive cough. pt also has left skin tear. wound treatment done. pt is ok to transfer to [facility]. conveyor monitor dc. pt given breathing treatments. no sob noted. pt ate and slept well throughout the day. for dc and pt urinated after. labs ordered for tomorrow. will endorse to night filler nurse. Addendum: 11/22/16 at 1839 by OSEI NARANJO RN pt has not urinated. encouraged to go to the bathroom with asssist. will continue to monitor.
[2016-11-22] MEDS: ATORVASTATIN 40 MG TABLET PO SCH (19:44)
[2016-11-22] MEDS: MORPHINE SULFATE 2 MG/1 ML DISP.SYRIN IV PRN (19:46)
[2016-11-22 20:41] VITALS: BP 109/74
[2016-11-23] MEDS: ALBUTEROL SULFATE 2.5 MG/3 ML NEBU NEB SCH ×4 (00:56→18:54)
[2016-11-23] MEDS: IPRATROPIUM BROMIDE 0.5 MG/2.5 ML NEBU NEB SCH ×4 (00:56→18:54)
[2016-11-23 05:09] VITALS: BP 119/83
--- NOTE | 2016-11-23 06:00 | NUR ---
No acute resp distress, patient tolerated p.o antibiotic, vital signs WNL. Attended w/ all needs, kept comfortable. Sponge bath provided last night, complete linen change sone. Current weight 212 lbs.
[2016-11-23] MEDS: CEPHALEXIN MONOHYDRATE 500 MG CAPSULE PO SCH ×3 (06:03→20:51)
[2016-11-23 07:00] LABS: EOSINOPHILS % (AUTO) 0.1 % (0.0-7.0); LYMPHOCYTES # (AUTO) 0.3 K/uL (20.0-40.0)
[2016-11-23 07:12] LABS: BASOPHILS % (AUTO) 0.1 % (0.0-2.0); HEMATOCRIT 44.2 % (31.2-41.9); HEMOGLOBIN 14.8 g/dL (10.9-14.3); LYMPHOCYTES % (AUTO) 2.3 % (20.5-51.5); MEAN CORPUSCULAR HEMOGLOBIN 32.9 uug (24.7-32.8); MEAN CORPUSCULAR HGB CONC 34 g/dL (32.3-35.6); MEAN CORPUSCULAR VOLUME 98.2 fL (75.5-95.3); MONOCYTES # (AUTO) 0.6 K/uL (2.0-10.0); MONOCYTES % (AUTO) 4.1 % (0.0-11.0); NEUTROPHILS # (AUTO) 12.8 K/uL (1.8-8.9); NEUTROPHILS % (AUTO) 93.4 % (38.5-71.5); PLATELET COUNT (AUTO) 258 K/uL (179-408); WHITE BLOOD COUNT (AUTO) 13.7 K/uL (3.8-11.8)
[2016-11-23 07:43] LABS: BILIRUBIN,TOTAL 0.8 mg/dL (0.2-1.0); MAGNESIUM 2.5 mg/dL (1.8-2.4); PHOSPHOROUS 3.9 mg/dL (2.5-4.9); POTASSIUM 3.8 mmol/L (3.5-5.1); TOTAL PROTEIN, SERUM 6.1 g/dL (6.4-8.2)
[2016-11-23] MEDS: methylPREDNISolone SOD SUCC 40 MG/ML VIAL IV SCH (08:53)
[2016-11-23] MEDS: AZITHROMYCIN 250 MG TABLET PO SCH (08:53)
[2016-11-23] MEDS: ASPIRIN 81 MG TAB.CHEW GT SCH (08:53)
[2016-11-23] MEDS: FAMOTIDINE 20 MG TABLET PO SCH ×2 (08:54→20:51)
[2016-11-23] MEDS: ACIDOPHILUS/BULGARICUS CHEW TAB GT SCH ×2 (08:54→20:50)
[2016-11-23] MEDS: FUROSEMIDE 20 MG TABLET PO SCH ×2 (08:56→17:31)
[2016-11-23] MEDS: Z GUARD REMEDY PASTE 57 GM TUBE TOP SCH ×2 (08:56→20:51)
[2016-11-23] MEDS: LISINOPRIL 5 MG TABLET PO SCH (08:56)
[2016-11-23] MEDS: BISOPROLOL FUMARATE 5 MG TABLET PO SCH (08:58)
[2016-11-23 09:12] LABS: BAND % (MANUAL) 2 % (0-10); LYMPHOCYTES % (MANUAL) 9 % (20-40); METAMYELOCYTES % 1 % (0-1); MONOCYTES % (MANUAL) 3 % (2-10); NEUTROPHILS % (MANUAL) 85 % (42-75)
[2016-11-23 11:29] VITALS: BP 114/76
[2016-11-23 15:53] VITALS: BP 118/80
[2016-11-23] MEDS: predniSONE 20 MG TABLET PO SCH (17:31)
[2016-11-23 20:38] VITALS: BP 104/57
[2016-11-23] MEDS: ATORVASTATIN 40 MG TABLET PO SCH (20:50)
[2016-11-24] MEDS: ALBUTEROL SULFATE 2.5 MG/3 ML NEBU NEB SCH ×4 (00:39→18:47)
[2016-11-24] MEDS: IPRATROPIUM BROMIDE 0.5 MG/2.5 ML NEBU NEB SCH ×4 (00:39→18:47)
--- NOTE | 2016-11-24 00:50 | NUR ---
Patient c/o constipation x4 days. Dulcolax 10mg supp adm.
[2016-11-24 04:46] VITALS: BP 125/75
[2016-11-24] MEDS: CEPHALEXIN MONOHYDRATE 500 MG CAPSULE PO SCH ×3 (05:35→21:11)
[2016-11-24 05:59] LABS: BASOPHILS # (AUTO) 0.3 K/uL (0.0-8.0); BASOPHILS % (AUTO) 1.5 % (0.0-2.0); EOSINOPHILS # (AUTO) 0.1 K/uL (0.0-0.7); EOSINOPHILS % (AUTO) 0.3 % (0.0-7.0); HEMATOCRIT 42.9 % (37-47); HEMOGLOBIN 14.4 G/DL (12.0-16.0); LYMPHOCYTES # (AUTO) 0.4 K/UL (0.8-4.8); LYMPHOCYTES % (AUTO) 2.2 % (20.5-51.5); MEAN CORPUSCULAR HEMOGLOBIN 32.4 UUG (27.0-31.0); MEAN CORPUSCULAR HGB CONC 34 g/dL (32.0-37.0); MEAN CORPUSCULAR VOLUME 96.8 FL (81.0-99.0); MONOCYTES # (AUTO) 0.3 K/UL (0.1-1.30); MONOCYTES % (AUTO) 1.6 % (0.0-11.0); NEUTROPHILS # (AUTO) 16.5 K/UL (1.8-8.9); NEUTROPHILS % (AUTO) 94.4 % (38.5-71.5); PLATELET COUNT (AUTO) 278 K/UL (150-450); RED BLOOD CELL COUNT(AUTO) 4.43 MIL/UL (4.2-5.4); WHITE BLOOD COUNT (AUTO) 17.6 K/UL (4.0-11.2)
[2016-11-24 06:25] LABS: BILIRUBIN,TOTAL 0.7 mg/dL (0.2-1.0); MAGNESIUM 2.2 mg/dL (1.8-2.4); POTASSIUM 3.5 mmol/L (3.5-5.1); TOTAL PROTEIN, SERUM 5.7 g/dL (6.4-8.2)
--- NOTE | 2016-11-24 06:57 | NUR ---
No BM yet, vital signs remains stable. No acute resp. distress. Attended w/ all needs. Kept comfortable.
[2016-11-24] MEDS: ACIDOPHILUS/BULGARICUS CHEW TAB GT SCH ×2 (08:34→21:09)
[2016-11-24] MEDS: AZITHROMYCIN 250 MG TABLET PO SCH (08:34)
[2016-11-24] MEDS: LISINOPRIL 5 MG TABLET PO SCH (08:35)
[2016-11-24] MEDS: ASPIRIN 81 MG TAB.CHEW GT SCH (08:35)
[2016-11-24] MEDS: predniSONE 20 MG TABLET PO SCH ×2 (08:35→18:20)
[2016-11-24] MEDS: FUROSEMIDE 20 MG TABLET PO SCH ×2 (08:35→17:14)
[2016-11-24] MEDS: FAMOTIDINE 20 MG TABLET PO SCH ×2 (08:36→21:09)
[2016-11-24] MEDS: Z GUARD REMEDY PASTE 57 GM TUBE TOP SCH ×2 (09:56→21:09)
[2016-11-24] MEDS: BISOPROLOL FUMARATE 5 MG TABLET PO SCH (10:07)
[2016-11-24 11:06] VITALS: BP 105/61
--- NOTE | 2016-11-24 14:11 | NUR ---
Received patient resting in bed. Alert and oriented x4. No SOB. Abdomen soft. Bowel sounds present in all 4 quadrants. 20 gauge hep lock in left upper arm. No redness or swelling noted at insertions site. Patient denies any pain or discomfort at insertions site. Left wrist dressing intact. Bilat pedal pulse present. Patient denies any pain or discomfort at this time. Call light within reach. Will continue to observe.
[2016-11-24 14:59] VITALS: BP 98/58
--- NOTE | 2016-11-24 18:38 | NUR ---
Patient up to bathroom x3 using walker and 1 person assist during shift. Patient denied any SOB on exeration. Patient tolerated well.
--- NOTE | 2016-11-24 19:00 | NUR ---
Received patient in bed, awake. Denies any pain/discomforts at this time. Tolerating O2 at 2L via NC, saturating 97% at this time. Safety measures and fall precaution maintained. Continue care as planned.
[2016-11-24 20:00] VITALS: BP 107/63
[2016-11-24] MEDS: ATORVASTATIN 40 MG TABLET PO SCH (21:09)
[2016-11-25] MEDS: IPRATROPIUM BROMIDE 0.5 MG/2.5 ML NEBU NEB SCH ×4 (00:49→19:47)
[2016-11-25] MEDS: ALBUTEROL SULFATE 2.5 MG/3 ML NEBU NEB SCH ×4 (00:49→19:47)
--- NOTE | 2016-11-25 00:51 | NUR ---
Prior the N tx pt was agree to take it. After medication was scanned and put in the N pt refused tx. No distress noted. 3rd mate Nattie notified.
[2016-11-25 04:31] VITALS: BP 114/76
--- NOTE | 2016-11-25 05:07 | NUR ---
Slept well. No complaint presented throughout the night. All needs attended and met. No significant event reported. VS stable.
[2016-11-25] MEDS: CEPHALEXIN MONOHYDRATE 500 MG CAPSULE PO SCH ×3 (05:45→22:28)
[2016-11-25 06:57] LABS: BASOPHILS % (AUTO) 0.1 % (0.0-2.0); EOSINOPHILS % (AUTO) 0.2 % (0.0-7.0); HEMATOCRIT 43.5 % (37-47); HEMOGLOBIN 14.3 G/DL (12.0-16.0); LYMPHOCYTES # (AUTO) 0.5 K/UL (0.8-4.8); LYMPHOCYTES % (AUTO) 2.9 % (20.5-51.5); MEAN CORPUSCULAR HEMOGLOBIN 32.1 UUG (27.0-31.0); MEAN CORPUSCULAR HGB CONC 33 g/dL (32.0-37.0); MONOCYTES # (AUTO) 0.3 K/UL (0.1-1.30); NEUTROPHILS # (AUTO) 15.8 K/UL (1.8-8.9); NEUTROPHILS % (AUTO) 94.8 % (38.5-71.5); PLATELET COUNT (AUTO) 267 K/UL (150-450); RED BLOOD CELL COUNT(AUTO) 4.44 MIL/UL (4.2-5.4); WHITE BLOOD COUNT (AUTO) 16.6 K/UL (4.0-11.2)
[2016-11-25 07:02] LABS: BILIRUBIN,TOTAL 0.7 mg/dL (0.2-1.0); MAGNESIUM 2.4 mg/dL (1.8-2.4); PHOSPHOROUS 3.3 mg/dL (2.5-4.9); POTASSIUM 4.6 mmol/L (3.5-5.1); TOTAL PROTEIN, SERUM 5.8 g/dL (6.4-8.2)
--- NOTE | 2016-11-25 07:10 | NUR ---
RECEIVED REPORT FROM [facility] SHIFT NURSE, PATIENT IN BED AWAKE, NO EVIDENCE OF DISTRESS NOTED. BED IN LOW POSITION, SIDE RAILS UP X2.
[2016-11-25] MEDS: predniSONE 20 MG TABLET PO SCH (08:27)
[2016-11-25] MEDS: AZITHROMYCIN 250 MG TABLET PO SCH (08:28)
[2016-11-25] MEDS: ACIDOPHILUS/BULGARICUS CHEW TAB GT SCH ×2 (08:28→20:31)
[2016-11-25] MEDS: BISOPROLOL FUMARATE 5 MG TABLET PO SCH (08:28)
[2016-11-25] MEDS: FAMOTIDINE 20 MG TABLET PO SCH ×2 (08:29→20:31)
[2016-11-25] MEDS: FUROSEMIDE 20 MG TABLET PO SCH ×2 (08:29→17:21)
[2016-11-25] MEDS: LISINOPRIL 5 MG TABLET PO SCH (08:29)
[2016-11-25] MEDS: ASPIRIN 81 MG TAB.CHEW GT SCH (08:29)
[2016-11-25] MEDS: Z GUARD REMEDY PASTE 57 GM TUBE TOP SCH ×2 (08:30→20:31)
[2016-11-25 11:21] VITALS: BP 124/55
--- NOTE | 2016-11-25 13:00 | NUR ---
PATIENT WAS TITRATED OFF OF OXYGEN, TOLERATED WELL, SATURATION IS BETWEEN 89-94%.
[2016-11-25 15:12] VITALS: BP 107/71
--- NOTE | 2016-11-25 18:40 | NUR ---
PATIENT WAS PICKED UP BY TRANSPORTATION TO BE TAKEN TO [facility]. PATIENT'S VITALS ARE STABLE, NO EVIDENCE OF DISTRESS NOTED. IV REMOVED FROM RIGHT ARM AND REPORT CALLED TO FACILITY. Addendum: 11/25/16 at 1842 by NARESH GIVENS RN WRONG PATIENT NOTE, PLEASE DISREGARD.
--- NOTE | 2016-11-25 18:42 | NUR ---
PATIENT HAS EXPRESSED SOME CONCERNS ABOUT NOT RETURNING HOME TODAY. PATIENT BECAME TEARFUL AND STATED SEVERAL REASONS SHE FELT SHE IS BEING HELD HERE. NO EVIDENCE OF PHYSICAL DISTRESS NOTED, NO PAIN REPORTED, NO SHORTNESS OF BREATH.
[2016-11-25 20:00] VITALS: BP 105/56
[2016-11-25] MEDS: ATORVASTATIN 40 MG TABLET PO SCH (20:31)
[2016-11-26] MEDS: ALBUTEROL SULFATE 2.5 MG/3 ML NEBU NEB SCH ×4 (00:50→20:09)
[2016-11-26] MEDS: IPRATROPIUM BROMIDE 0.5 MG/2.5 ML NEBU NEB SCH ×4 (00:50→20:09)
[2016-11-26 04:19] VITALS: BP 109/78
[2016-11-26] MEDS: CEPHALEXIN MONOHYDRATE 500 MG CAPSULE PO SCH ×2 (06:06→14:20)
[2016-11-26 06:45] LABS: BASOPHILS # (AUTO) 0.1 K/uL (0.0-8.0); BASOPHILS % (AUTO) 0.4 % (0.0-2.0); EOSINOPHILS # (AUTO) 0.1 K/uL (0.0-0.7); EOSINOPHILS % (AUTO) 0.7 % (0.0-7.0); HEMATOCRIT 42.3 % (37-47); HEMOGLOBIN 14.2 G/DL (12.0-16.0); LYMPHOCYTES # (AUTO) 0.8 K/UL (0.8-4.8); LYMPHOCYTES % (AUTO) 5.9 % (20.5-51.5); MEAN CORPUSCULAR HEMOGLOBIN 32.5 UUG (27.0-31.0); MEAN CORPUSCULAR HGB CONC 34 g/dL (32.0-37.0); MEAN CORPUSCULAR VOLUME 96.9 FL (81.0-99.0); MONOCYTES # (AUTO) 0.4 K/UL (0.1-1.30); PLATELET COUNT (AUTO) 298 K/UL (150-450); RED BLOOD CELL COUNT(AUTO) 4.37 MIL/UL (4.2-5.4); WHITE BLOOD COUNT (AUTO) 13.4 K/UL (4.0-11.2)
[2016-11-26 06:56] LABS: BILIRUBIN,TOTAL 0.8 mg/dL (0.2-1.0); CREATININE 1.1 mg/dL (0.6-1.3); MAGNESIUM 2.2 mg/dL (1.8-2.4); PHOSPHOROUS 2.3 mg/dL (2.5-4.9); POTASSIUM 3.4 mmol/L (3.5-5.1); TOTAL PROTEIN, SERUM 5.6 g/dL (6.4-8.2)
--- NOTE | 2016-11-26 08:00 | NUR ---
RESTING IN BED NO SIGNS OF ACUTE SAB OR PAIN NO OXYGEN IN USE SATURATING 95%
[2016-11-26] MEDS: FAMOTIDINE 20 MG TABLET PO SCH (08:30)
[2016-11-26] MEDS: ASPIRIN 81 MG TAB.CHEW GT SCH (08:30)
[2016-11-26] MEDS: AZITHROMYCIN 250 MG TABLET PO SCH (08:30)
[2016-11-26] MEDS: LISINOPRIL 5 MG TABLET PO SCH (08:31)
[2016-11-26] MEDS: ACIDOPHILUS/BULGARICUS CHEW TAB GT SCH (08:32)
[2016-11-26] MEDS: FUROSEMIDE 20 MG TABLET PO SCH ×2 (08:32→17:20)
[2016-11-26] MEDS: BISOPROLOL FUMARATE 5 MG TABLET PO SCH (08:33)
[2016-11-26] MEDS: Z GUARD REMEDY PASTE 57 GM TUBE TOP SCH (08:34)
[2016-11-26] MEDS ORDERED: predniSONE 20 MG TABLET PO SCH (09:00)
[2016-11-26] MEDS ORDERED: POTASSIUM PHOSPHATE MM 7.5 MMOL in IV DEXTROSE 5% 100 ML IV ONE (09:45)
[2016-11-26] MEDS ORDERED: POTASSIUM CHLORIDE 10 MEQ CAPSULE.SA PO ONE (10:15)
--- NOTE | 2016-11-26 10:42 | NUR ---
Spoke to the patient's daughter, Patricia [ ; [email or web address]], about the patient's discharge and she is aware that a request was made for Assisted Home Health [ ; contact - Carmel stated they have to wait until 11/27/16 when their business office is open for the private quote] for home health and [employer] [ ; contact - Ed; quoted $147/month rental for concentrator and $40/month for two portable tanks] for oxygen. She is aware that they might pay privately for the services due to the insurance coverage. She stated that the patient already initiated the Medicare application. Advised her to follow-up with the regular [employer] as well because the patient will be needing a secondary insurance. She requested for this torsion spring coiling machine setter to double check if the patient has coverage for Medicare already and our admitting ran her insurance and did not show any Medicare coverage. This torsion spring coiling machine setter e-mailed her community resources. She also confirmed that they will pick her up via private car today around 7:00 p.m. [facility] will be providing her with a FWW. Updated her RN, Georgette, about her discharge plan.
[2016-11-26 11:14] VITALS: BP 103/51
--- NOTE | 2016-11-26 12:00 | NUR ---
SEEN BY Petra [facility] HOSPITALIST WITH DISCHARGE ORDER. ALSO NOTED ABNORMAL LABS WILL REPLACE K AND PHOS
[2016-11-26] MEDS ORDERED: ALBU2.5V7 NEB (12:02)
[2016-11-26] MEDS ORDERED: ATOR40TA PO (12:02)
[2016-11-26] MEDS ORDERED: BISO5TAB3 PO (12:02)
[2016-11-26] MEDS ORDERED: ACID1TAB4 GT (12:02)
[2016-11-26] MEDS ORDERED: POTA10TA15 PO (12:02)
[2016-11-26] MEDS ORDERED: LISI-607 PO (12:02)
[2016-11-26] MEDS ORDERED: FAMO20TA8 PO (12:02)
[2016-11-26] MEDS ORDERED: PRED20TA PO (12:02)
[2016-11-26] MEDS ORDERED: AZIT250T6 PO (12:02)
[2016-11-26] MEDS ORDERED: PRED10TA PO (12:02)
[2016-11-26] MEDS ORDERED: ASPI81TA31 PO (12:02)
[2016-11-26] MEDS ORDERED: IPRA0.2S6 NEB (12:02)
[2016-11-26] MEDS ORDERED: CEPH500C2 PO (12:02)
[2016-11-26] MEDS ORDERED: FURO20TA4 PO (12:02)
[2016-11-26] MEDS ORDERED: LACT1CAP69 PO (12:03)
[2016-11-26 15:35] VITALS: BP 102/59
--- NOTE | 2016-11-26 15:38 | NUR ---
AWAITING FOR FAMILY FOR DISCHARGE
[2016-11-26 20:03] VITALS: BP 125/66
--- NOTE | 2016-11-26 20:48 | NUR ---
Discharged patient via wheelchair accompanied by daughter and friend in stable condition. No complaint presented.VS stable.
== END 2016-11-26 21:08 | disposition home health service (06) | DRG 133 ==
LOC: ER 11:57 → CCU 17:54 → TELE-TD 11-19 10:48 → TELE 11-19 11:26 → MED 11-22 17:40
PROVIDERS: ADMIT Internal Medicine; ATTEND Internal Medicine
PROC: 0BH17EZ Insertion of Endotracheal Airway into Trachea, Via Natural or Artificial Opening (ICD-10-PCS; principal; 2016-11-17)
PROC: 5A1935Z Respiratory Ventilation, Less than 24 Consecutive Hours (ICD-10-PCS; principal; 2016-11-17)
DX: J96.01 Acute respiratory failure with hypoxia (principal); N17.0 Acute kidney failure with tubular necrosis; I21.A1 Myocardial infarction type 2; I50.21 Acute systolic (congestive) heart failure; J15.9 Unspecified bacterial pneumonia; E87.0 Hyperosmolality and hypernatremia; L03.115 Cellulitis of right lower limb; E67.8 Other specified hyperalimentation; E44.0 Moderate protein-calorie malnutrition; J44.1 Chronic obstructive pulmonary disease with (acute) exacerbation; J20.8 Acute bronchitis due to other specified organisms; J44.0 Chronic obstructive pulmonary disease with (acute) lower respiratory infection; Z68.41 Body mass index [BMI] 40.0-44.9, adult; K76.0 Fatty (change of) liver, not elsewhere classified; E86.0 Dehydration; L03.116 Cellulitis of left lower limb; N39.0 Urinary tract infection, site not specified; F17.210 Nicotine dependence, cigarettes, uncomplicated; F43.21 Adjustment disorder with depressed mood; B96.20 Unspecified Escherichia coli [E. coli] as the cause of diseases classified elsewhere; G47.33 Obstructive sleep apnea (adult) (pediatric); E66.01 Morbid (severe) obesity due to excess calories; Z71.3 Dietary counseling and surveillance; I08.1 Rheumatic disorders of both mitral and tricuspid valves; E78.5 Hyperlipidemia, unspecified; E79.0 Hyperuricemia without signs of inflammatory arthritis and tophaceous disease; D75.1 Secondary polycythemia; K59.00 Constipation, unspecified; E87.6 Hypokalemia; E83.41 Hypermagnesemia; J96.02 Acute respiratory failure with hypercapnia; J98.11 Atelectasis; E83.39 Other disorders of phosphorus metabolism; F43.20 Adjustment disorder, unspecified; F41.9 Anxiety disorder, unspecified; T38.0X5A Adverse effect of glucocorticoids and synthetic analogues, initial encounter; D72.829 Elevated white blood cell count, unspecified; R73.9 Hyperglycemia, unspecified
CPT/HCPCS: 36415; 36600; 70030-TC; 71010; 74000; 83550; 83605; 83735; 84100; 84300; 84443; 84550; 85025; 85610; 87040; 87077; 87086; 92523; 93005; 93307; 94002; 94003; 94640; 97116; 97530; A4663; J0330; J1650; J1940; J2250; J2270; J2543; J2920; J2930; J3370; J3490; J3590; J7030; J7050; J7060; J7512; Q0144